=== PATIENT | female | born 1970 | race African-American/Black ===

== ENCOUNTER 2016-07-19 15:43 | Emergency (ER) | payer BC ==
[~2016-07-19] VITALS: Ht 167.6 cm; Wt 59.0 kg
[~2016-07-19 15:43] MED LIST: UNICOMPLEX M TA1 TA1 PO
[2016-07-19 16:19] LABS: HEMATOCRIT 36.3 % (37.0-47.0); MCH 27.1 pg (26.0-34.0); MCHC 33.1 g/dL (28.0-37.0); MCV 81.8 fL (80.0-100.0); RBC 4.43 mil/uL (4.20-5.00); RDW 13.8 % (10.5-14.5)
[2016-07-19 16:27] LABS: CREATININE 0.8 mg/dL (0.6-1.0); POTASSIUM 3.6 mmol/L (3.5-5.1)
[2016-07-19] MEDS ORDERED: TOPAMAX 25 MG T25 M1 PO (18:12)
== END 2016-07-19 18:36 | disposition home or self-care (01) ==
LOC: ER 15:43
PROVIDERS: Emergency Medicine
DX: G89.29 Other chronic pain (principal); R51 Headache; Z90.710 Acquired absence of both cervix and uterus; F10.99 Alcohol use, unspecified with unspecified alcohol-induced disorder

== ENCOUNTER → 2016-07-20 | Outpatient (CLI) | payer BC ==
[~2016-07-20] MED LIST changes: +TOPAMAX 25 MG T25 M1 PO
== END ==
LOC: MRI 15:16
DX: R51 Headache (principal); R42 Dizziness and giddiness

== ENCOUNTER → 2017-06-29 | Outpatient (CLI) | payer OTHER ==
[~2017-06-29] VITALS: Ht 165.1 cm; Wt 61.7 kg
--- NOTE | ~2017-06-29 | P ---
[facility] [place] [address] PROCEDURE REPORT Name: NATALY SAGASTUME I Room #: REG [facility] Nica#: [id number] Admission: 06/29/17 Attend Phys: Bjorn Villagomez Discharge: Date of : 68 Report #: [id number] THIS REPORT FOR: //name// CC: Bjorn Arita MD DATE OF SERVICE: 06/29/2017 PROCEDURE PERFORMED: Colonoscopy with biopsies and APC cautery. HISTORY OF PRESENT ILLNESS: The patient is a 47-year-old female who underwent a colonoscopy by Dr. Gleason on 01/14/2015 in which a large 3 cm polyp was noted in the distal sigmoid and the retrosigmoid area at 15 cm from the anal canal. This was removed by snare cautery and the area was tattooed. She has not had a followup colonoscopy since that time. She denies any symptoms currently. She presents today for routine followup. Biopsies showed tubulovillous adenoma with polyps. Negative for high-grade dysplasia at that time. DESCRIPTION OF PROCEDURE: The risks and benefits of the procedure were explained to the patient, those risks including but not limited to bleeding, perforation and the risk of sedation. She understood these risks and gave informed consent. Sedation was given using propofol per anesthesia. Next, digital rectal exam was initially performed, which was normal. Next, using a standard LUVHANinon colonoscope, the scope was placed in the patient's anus and advanced under direct vision to the cecum. The overall prep was excellent. The cecum and ileocecal valve were normal in appearance. The ascending, transverse and descending colon were normal. In the distal sigmoid colon at the rectosigmoid area, the tattoo was noted. There was one area of scarring and within that scar area was what appears to be new tubulovillous changes. This was approximately 6 mm in length. This was removed by jumbo biopsy cold forceps. I then treated the base of this area with APC cautery to help prevent new polyp tissue from forming. The rectal mucosa was normal. On retroflexion, no abnormalities were noted. The scope was then withdrawn and the procedure terminated. The patient tolerated the procedure well. IMPRESSION: 1. Previous polypectomy site noted as described above. Appears to have new polyp tissue. This was removed today and treated with APC cautery. 2. Otherwise, normal colonoscopy. RECOMMENDATIONS: 1. Await biopsy results. 2. We will likely recommend repeat flexible sigmoidoscopy within the next year. [address] [address] PROCEDURE REPORT Name: NATALY SAGASTUME I Room #: REG [facility].#: [id number] Admission: 06/29/17 Attend Phys: Bjorn Villagomez Discharge: Date of : 68 Report #: [id number] Thank you for allowing me to participate in her care. <ELECTRONICALLY SIGNED> By: Bjorn Howell MD 07/02/17 0814 [id number] Bjorn Howell MD /nt
== END ==
LOC: GI 07:02
DX: Z12.11 Encounter for screening for malignant neoplasm of colon (principal); D12.7 Benign neoplasm of rectosigmoid junction; Z86.010 Personal history of colon polyps; K63.5 Polyp of colon; Z98.890 Other specified postprocedural states; Z90.710 Acquired absence of both cervix and uterus
CPT/HCPCS: 62110; 62900

== ENCOUNTER → 2018-05-10 | Outpatient (CLI) | payer OTHER ==
[~2018-05-10] VITALS: Ht 165.1 cm; Wt 62.6 kg
[~2018-05-10] MED LIST changes: +ESTRADIOL 1 MG T1 M1 PO; +VALACYCLOVIR500 MG PO; +XANAX 0.5 MG0.5 MG PO
--- NOTE | ~2018-05-10 | P ---
[facility] [place] [address] PROCEDURE REPORT Name: TANIKANATALY rBian Room #: REG [facility] Gris.#: [id number] Admission: 05/10/18 ������������������ Attend Phys: Bjorn Villagomez Discharge: ������������������ Date of : 68 Report #: [id number] THIS REPORT FOR: //name// CC: Bjorn Arita DATE OF SERVICE: 05/10/2018 PROCEDURE PERFORMED: Colonoscopy with biopsies. HISTORY OF PRESENT ILLNESS: The patient is a 47-year-old female who underwent a colonoscopy by Dr. Gleason on 01/14/2015, in which a large 3-cm polyp was noted in the distal sigmoid colon and removed by snare cautery. The area was also tattooed. She had not had a followup colonoscopy until last year. I performed a colonoscopy on 06/29/2017. The previous polyp was a tubulovillous adenoma, negative for dysplasia. Last year, it appeared that new polyp tissue had grown at the previous polypectomy site and this was removed by snare cautery. I also treated the area with APC cautery. The pathology from that area showed an adenomatous polyp. She is here for a 1-year followup. She denies any symptoms. No family history of colon cancer. DESCRIPTION OF PROCEDURE: The risks and benefits of the procedure were explained to the patient; those risks including, but not limited to bleeding, perforation and the risk of sedation. She understood these risks and gave informed consent. Sedation was given using propofol per anesthesia. Next, a digital rectal exam was initially performed, which was normal. Next, using a standard Olympus colonoscope, the scope was placed in the patient's anus and advanced under direct vision to the cecum. The overall prep was excellent. The cecum and ileocecal valve were normal in appearance. Ascending, transverse and descending colon were normal. In the distal sigmoid colon, the previous tattoo was again noted. There was no obvious polyp tissue on exam today. I did take several random biopsies of the previous polypectomy site, however. The rectal mucosa was normal. On retroflexion, no abnormalities were noted. The scope was then withdrawn and the procedure terminated. The patient tolerated the procedure well. IMPRESSION: Previous polypectomy site appears well healed. No obvious polyp tissue was noted, but biopsies were obtained today. RECOMMENDATIONS: Await biopsy results. If biopsies are negative for adenomatous tissue, we will repeat colonoscopy in [address] [address] PROCEDURE REPORT Name: NATALY SAGASTUME I Room #: REG [facility] Yousif#: [id number] Admission: 05/10/18 ������������������ Attend Phys: Bjorn Villagomez Discharge: ������������������ Date of : 68 Report #: [id number] Thank you for allowing me to participate in her care. ��������������������������������������������� ���������������������������������������� By: ��������������������������������������������� [id number] Bjorn Howell MD /nt
--- NOTE | 2018-05-15 11:09 | PATH ---
[facility] [place] [address] PATHOLOGY RPT PROCEDURE Name: NATALY SAGASTUME Brian Room #: REG [facility] M..#: [id number] ������������������ Admission: 05/10/18 ������������������ Date of : 68 Discharge: Report #: [id number] Path Case #: [id number] [facility] Accession Number: [id number] . 01 Material submitted: . PREVIOUS POLYP SITE - DISTAL SIGMOID COLON BX . 01 Clinical history: . Pre-OP DX: Hx of polyps Post-OP DX: Colon polyp . 02 Diagnosis: Large intestine, previous polyp site distal sigmoid colon, endoscopic biopsy: - Reactive hyperplastic changes. - Negative for dysplasia. 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 02 Electronically signed: . Shruthi Monroe MD, Pathologist NPI- [id number] . 01 Gross description: . Received in formalin labeled "Nataly Sagastume, distal sigmoid colon BX," and additionally labeled on the requisition as "previous polyp site," are 2 segments of myers soft tissue measuring 0.8 x 0.3 x 0.2 cm in aggregate dimensions and ranging from 0.3 to 0.5 cm in maximum dimension. The specimen is submitted entirely in cassette A1. (TSD; 05/10/2018) TOB/TOB . 02 Pathologist provided ICD-10: Z86.010 . 02 CPT . 881347 Specimen Comment: A courtesy copy of this report has been sent to Specimen Comment: [phone], . Specimen Comment: Report sent to and Specimen Comment: A duplicate report has been generated due to demographic updates. Performed at: [address] [id number] MD Vishal Mayorga MD Phone: [phone] Performed at: [address] [address] PATHOLOGY RPT PROCEDURE Name: NATALY SAGASTUME I [facility].#: [id number] ������������������ Admission: 05/10/18 ������������������ Date of : 68 Discharge: Report #: [id number] Path Case #: [id number] [address] [id number] MD Shruthi Monroe MD Phone: [phone]
== END | disposition home or self-care (01) ==
LOC: GI 07:09
DX: Z09 Encounter for follow-up examination after completed treatment for conditions other than malignant neoplasm (principal); Z86.010 Personal history of colon polyps; K63.89 Other specified diseases of intestine; F41.9 Anxiety disorder, unspecified; R51 Headache; Z90.710 Acquired absence of both cervix and uterus; Z98.890 Other specified postprocedural states; Z79.899 Other long term (current) drug therapy
CPT/HCPCS: 62110; 62900